=== PATIENT | female | born 1990 | race Caucasian/White ===

== ENCOUNTER 2018-12-16 23:32 | Emergency (ER) | payer OTHER ==
[~2018-12-16] VITALS: Ht 162.6 cm; Wt 95.3 kg
[2018-12-17] MEDS ORDERED: ZOFRAN4 MG PO (03:42)
[2018-12-17] MEDS ORDERED: PEPCID40 MG PO (03:42)
== END 2018-12-17 03:38 | disposition home or self-care (01) ==
LOC: ER 23:32
DX: O21.0 Mild hyperemesis gravidarum (principal); O26.892 Other specified pregnancy related conditions, second trimester; K52.9 Noninfective gastroenteritis and colitis, unspecified; Z34.82 Encounter for supervision of other normal pregnancy, second trimester

== ENCOUNTER 2019-01-06 09:43 | Emergency (ER) | payer OTHER ==
[~2019-01-06] VITALS: Ht 132.1 cm; Wt 95.3 kg
[~2019-01-06 09:43] MED LIST: PEPCID40 MG PO; ZOFRAN4 MG PO
[2019-01-06] MEDS ORDERED: DUI500 PO (14:42)
== END 2019-01-06 14:52 | disposition home or self-care (01) ==
LOC: ER 09:43
DX: L02.31 Cutaneous abscess of buttock (principal); O26.893 Other specified pregnancy related conditions, third trimester; Z3A.30 30 weeks gestation of pregnancy

== ENCOUNTER → 2019-02-17 | Outpatient (CLI) | payer OTHER ==
[~2019-02-17] MED LIST changes: +DUI500 PO
== END | disposition home or self-care (01) ==
LOC: PRENATAL 14:00
DX: O24.410 Gestational diabetes mellitus in pregnancy, diet controlled (principal); O99.213 Obesity complicating pregnancy, third trimester; O26.843 Uterine size-date discrepancy, third trimester

== ENCOUNTER 2019-03-06 07:47 | Inpatient (IN) | payer OTHER ==
[~2019-03-06] VITALS: Ht 162.6 cm; Wt 101.6 kg
[2019-03-06] MEDS ORDERED: PRENATAL TABLE1 EAC1 PO (08:25)
[2019-03-06] MEDS ORDERED: VALTREX1000 MG PO (08:39)
== END 2019-03-08 15:38 | DRG 807 ==
LOC: OB/GYN 07:47 → LDR 07:47 → OB/GYN 10:26
PROVIDERS: ADMIT Obstetrics & Gynecology
PROC: 10E0XZZ Delivery of Products of Conception, External Approach (ICD-10-PCS; principal; 2019-03-06)
PROC: 0KQM0ZZ Repair Perineum Muscle, Open Approach (ICD-10-PCS; 2019-03-06)
PROC: 4A1HXCZ Monitoring of Products of Conception, Cardiac Rate, External Approach (ICD-10-PCS; 2019-03-06)
PROC: 4A033R1 Measurement of Arterial Saturation, Peripheral, Percutaneous Approach (ICD-10-PCS; 2019-03-06)
DX: O70.1 Second degree perineal laceration during delivery (principal); O24.410 Gestational diabetes mellitus in pregnancy, diet controlled; Z37.0 Single live birth; Z3A.38 38 weeks gestation of pregnancy